=== PATIENT | male | born 2000 | race Hispanic/Latino ===

== ENCOUNTER 2021-02-10 06:43 | Emergency (ER) | payer OTHER ==
[~2021-02-10] VITALS: Ht 165.1 cm; Wt 69.1 kg
[2021-02-10] MEDS ORDERED: FLUORESCEIN OPHTH 1 MG STRIP OU ONE (08:00)
[2021-02-10] MEDS ORDERED: TETRACAINE 0.5% OPHTH SOLN 4ML OU ONE (08:00)
[2021-02-10] MEDS ORDERED: OLOP0.1D OP (09:40)
[2021-02-10] MEDS ORDERED: CILO0.3S OP (09:41)
[2021-02-10] MEDS ORDERED: ALL10TAB2 PO (09:43)
[2021-02-10 09:55] VITALS: BP 120/78
== END 2021-02-10 09:56 | disposition home or self-care (01) ==
LOC: M ED 06:43
DX: S05.01XA Injury of conjunctiva and corneal abrasion without foreign body, right eye, initial encounter (principal); S05.02XA Injury of conjunctiva and corneal abrasion without foreign body, left eye, initial encounter; X58.XXXA Exposure to other specified factors, initial encounter; Y92.89 Other specified places as the place of occurrence of the external cause; H10.89 Other conjunctivitis; J30.89 Other allergic rhinitis